=== PATIENT | male | born 1950 | race Caucasian/White ===

== ENCOUNTER 2021-07-22 10:53 | Emergency (ER) | payer MEDICARE ==
[~2021-07-22 10:53] MED LIST: CATAPRES 0.1MG0.1 MG PO; FLOMAX 0.4 MG0.4 MG PO; MECLIZINE HCL25 MG PO; VIBRAMYCIN 100100 MG PO
[2021-07-22] MEDS ORDERED: DOXYCYCLINE HY100 M2 PO (13:39)
[2021-07-22] MEDS ORDERED: BENZONATATE200 MG PO (13:47)
== END 2021-07-22 13:50 | disposition home or self-care (01) ==
LOC: ER1 10:53
DX: J01.90 Acute sinusitis, unspecified (principal); E11.9 Type 2 diabetes mellitus without complications; I10 Essential (primary) hypertension; Z79.899 Other long term (current) drug therapy; Z20.822 Contact with and (suspected) exposure to COVID-19
CPT/HCPCS: 71045; 87081; 87880; 96372; 99283; J0696; U0002

== ENCOUNTER 2021-08-19 13:11 | Emergency (ER) | payer MEDICARE ==
[~2021-08-19 13:11] MED LIST changes: +BENZONATATE200 MG PO; +DOXYCYCLINE HY100 M2 PO
[2021-08-19] MEDS ORDERED: IBUPROFEN400 MG PO (15:26)
== END 2021-08-19 15:47 | disposition home or self-care (01) ==
LOC: ER1 13:11
DX: S60.211A Contusion of right wrist, initial encounter (principal); S60.221A Contusion of right hand, initial encounter; S40.011A Contusion of right shoulder, initial encounter; E78.5 Hyperlipidemia, unspecified; I10 Essential (primary) hypertension; E11.9 Type 2 diabetes mellitus without complications; W01.0XXA Fall on same level from slipping, tripping and stumbling without subsequent striking against object, initial encounter
CPT/HCPCS: 71046; 73030; 73110; 73130; 99283

== ENCOUNTER 2021-11-10 16:58 | Emergency (ER) | payer MEDICARE ==
[~2021-11-10 16:58] MED LIST changes: +IBUPROFEN400 MG PO
[2021-11-10 18:40] LABS: HEMOGLOBIN 12.8 gm/dl (14.0-17.5); RED BLOOD COUNT 4.44 M/UL (4.20-5.50); WHITE BLOOD COUNT 8.1 K/UL (4.5-11.0)
[2021-11-10 19:00] LABS: BUN/CREATININE RATIO 23 (0-10)
== END 2021-11-10 20:42 | disposition home or self-care (01) ==
LOC: ER1 16:58
PROVIDERS: Physician Assistant
DX: R07.89 Other chest pain (principal); I12.9 Hypertensive chronic kidney disease with stage 1 through stage 4 chronic kidney disease, or unspecified chronic kidney disease; N18.9 Chronic kidney disease, unspecified; E10.9 Type 1 diabetes mellitus without complications
CPT/HCPCS: 71045; 80053; 82550; 82553; 83880; 84484; 85025; 99285

== ENCOUNTER → 2022-03-07 | Outpatient (CLI) | payer MEDICARE | LOC: NM 09:00 | DX: R10.11 Right upper quadrant pain (principal) | CPT/HCPCS: 78227; A9537 ==